=== PATIENT | female | born 1945 | race Caucasian/White ===

== ENCOUNTER 2017-03-07 19:51 | Emergency (ER) | payer MEDICARE, OTHER ==
[~2017-03-07] VITALS: Ht 160 cm; Wt 90.0 kg
[~2017-03-07 19:51] MED LIST: ALBU8I INH; ASPI81 PO; CARV6.252 PO; CYCL-36 PO; DIGO0.25 PO; EZET10 PO; FISH1000 PO; FLON0.053; FURO1TAB93 PO; GUAI200UDC PO; LEVA750T PO; NIAS10004 PO; NITR0.4S SL; OXYC-360 PO; SERT50 PO; SPIR25TA PO; TEMA15 PO; Z.0.OXYGENDME NC
[2017-03-07 19:55] VITALS: BP 178/79; PULSE 95; RESP 16; TEMP 98.2; O2SAT 97
[2017-03-07 20:17] VITALS: BP 139/85; PULSE 93; RESP 18; TEMP 99.5; O2SAT 95
[2017-03-07] MEDS ORDERED: PERC5TAB12 PO (20:27)
[2017-03-07] MEDS ORDERED: FISH1000 (20:27)
[2017-03-07] MEDS ORDERED: SPIR25TA PO (20:27)
[2017-03-07] MEDS ORDERED: CARV12.52 PO (20:27)
[2017-03-07] MEDS ORDERED: NITR0.4S SL (20:27)
[2017-03-07] MEDS ORDERED: TEMA15CA PO (20:27)
[2017-03-07] MEDS ORDERED: ZOLO50TA PO (20:27)
[2017-03-07] MEDS ORDERED: ZETI10TA5 PO (20:27)
[2017-03-07] MEDS ORDERED: AMMO12CR4 TOP (20:27)
[2017-03-07] MEDS ORDERED: SIMV40TA PO (20:27)
[2017-03-07] MEDS ORDERED: ASPI81CH CHEW (20:27)
[2017-03-07] MEDS ORDERED: TIZA4TAB PO (20:27)
[2017-03-07] MEDS ORDERED: FLUT1SPR14 (20:27)
[2017-03-07] MEDS ORDERED: CEPH500C PO (20:27)
[2017-03-07] MEDS ORDERED: ZOCO40TA PO (20:27)
[2017-03-07] MEDS ORDERED: FURO40TA PO (20:27)
[2017-03-07] MEDS ORDERED: DIGO0.25 PO (20:27)
[2017-03-07] MEDS ORDERED: SODIUM CHLORIDE 0.9% FLUSH 10 ML FLUSH IVF PRN (20:30)
[2017-03-07] MEDS ORDERED: ASPIRIN 81 MG CHEW TAB PO ONE (20:30)
[2017-03-07 20:34] VITALS: BP 139/85; O2SAT 94
--- NOTE | 2017-03-07 20:38 | PD ---
HPI Chief Complaint: Cold / Flu Symptoms Time Seen by Provider: 20:19 Travel History International Travel<30 days: No Contact w/Intl Traveler<30days: No Traveled to known affect area: No History of Present Illness HPI Patient is a 71-year-old female with history of single-vessel CABG, HTN, HLD who presents the emergency department with complaint of flulike symptoms as well as chest and jaw pain. For the last week patient has had cough, chest congestion, nasal congestion. Associated body aches, but no fevers or chills. Cough is primarily nonproductive. Patient states she has also been having very brief spells, 2-20 seconds of substernal chest pressure that radiates into the left jaw. This comes and goes without provocative or palliative factors. She is pain-free at this time. Patient has not been taking any nitroglycerin for this pain as it is so short lasting. She states she last had a stress test by her staff electronic warfare officer, Dr. Bradley Tejeda, approximate 3 months ago in his office. Patient believes this to have been normal. PFSH Past Medical History Hx Anticoagulant Therapy: Yes Arthritis: Yes Asthma: No Autoimmune Disease: No Blood Disorders: No Anxiety: No Depression: Yes Heart Rhythm Problems: Yes Cancer: Yes (SKIN ) Cardiac Catheterization: Yes (1998 AND REPEATED ) Cardiovascular Problems: Yes (bypass 1998, cad ) High Cholesterol: Yes Chemotherapy: No Chest Pain: Yes Congestive Heart Failure: No COPD: No Cerebrovascular Accident: No Coronary Artery Disease: Yes Diabetes: No ("borderline") Patient Takes Glucophage: No Diminished Hearing: No Endocrine: Yes (HX OF BORDERLINE DIABETIC) Gastrointestinal Disorders: No GERD: No Genitourinary: No Headaches: No Hepatitis: No Hiatal Hernia: No Heparin Induced Thrombocytopen: No Hypertension: Yes Immune Disorder: No Implanted Vascular Access Dvce: Yes Medical other: No Musculoskeletal: Yes (OA, NECK/ BACK PAIN) Neurologic: No Psychiatric: Yes Reproductive: No Respiratory: Yes (pneumonia) Immunizations Current: No Migraines: No Radiation Therapy: No Seizures: No Sleep Apnea: Yes (wears cpap at home ) Thyroid Disease: No Ulcer: No PNEUMOCCOCAL Vaccine (Year): 2008 Menopausal: Yes Tubal Ligation: Yes Past Surgical History Abdominal Surgery: Yes (APPY) AICD: No Appendectomy: Yes Arteriovenous Shunt: No Body Medical Devices: bilateral hips and knees Cardiac Surgery: Yes (CABG ) Coronary Artery Bypass Graft: Yes (1998) Ear Surgery: No Endocrine Surgery: No Eye Surgery: Yes (BILATERAL CATARCT SURGERY) Genitourinary Surgery: No Gynecologic Surgery: Yes (TUBAL LIGATION) Hysterectomy: Yes Insulin Pump: No Joint Replacement: Yes (ABDIEL. KNEES, BILAT HIP) Neurologic Surgery: No Oral Surgery: Yes Pacemaker: No Thoracic Surgery: No Tonsillectomy: Yes Other Surgery: Yes (cyst removed from right of back.) Family History Family Myocardial Infarction: Yes Social History Alcohol Use: Yes (SOCIALLY) Tobacco Use: No Substance Use: No Allergies-Medications (Allergen,Severity, Reaction): Coded Allergies: Lisinopril (Verified Allergy, Severe, SWELLING/COUGH, 03/07/17) MOD. ADVERSE RXN--PEDAL EDEMA, GEN'L BODY ITCH, COUGH Lortab (Verified Allergy, Severe, ITCHING, 03/07/17) SEVERE ADV. RXN: GEN'L BODY ITCH Morphine (Verified Allergy, Severe, 03/07/17) NAUSEA VOMITITNG Tramadol (Verified Allergy, Severe, ITCHING, 03/07/17) MOD. ADV. RXN: GEN'L BODY ITCH DENNY Inhibitors (Verified Adverse Reaction, Severe, ITCH, 03/07/17) GENERAL BODY ITCH Verapamil (Verified Adverse Reaction, Severe, COUGH, ITCH, 03/07/17) SEVERE ADV. RXN: GEN'L BODY ITCH, COUGH Reported Meds & Prescriptions Reported Meds & Active Scripts Active Reported Cephalexin 500 Mg Cap 500 Mg PO Q8H Kls Aller-Kenneth (Fluticasone Propionate (Nasal)) 50 Mcg/Act Spr Ammonium Lactate (Lactic Acid) 12 % Cre 1 Applic TOP BID APPLY TO: Zoloft (Sertraline HCl) 50 Mg Tab 50 Mg PO DAILY Zetia (Ezetimibe) 10 Mg Tab 10 Mg PO DAILY Zocor (Simvastatin) 40 Mg Tab 40 Mg PO DAILY Tizanidine (Tizanidine HCl) 4 Mg Tab 4 Mg PO BID Temazepam 15 Mg Cap 15 Mg PO HS PRN Spironolactone 25 Mg Tab 25 Mg PO DAILY Simvastatin 40 Mg Tab 40 Mg PO HS Percocet (Oxycodone-Acetaminophen) 5-325 mg Tab 1 Tab PO Q4H PRN Nitrostat SL (Nitroglycerin) 0.4 Mg Subl 0.4 Mg SL DIRECTED PRN 1 tablet under the tongue as needed for chest pain. Repeat every 5 minutes for a total of 3 DOSES or call 911 if NO relief. Furosemide 40 Mg Tab 40 Mg PO DAILY Fish Oil ([place]-3 Fatty Acids) 1,000 Mg Cap Digoxin 0.25 Mg Tab 0.25 Mg PO DAILY Carvedilol 12.5 Mg Tab 12.5 Mg PO BID Aspirin 81 Mg Chew 81 Mg CHEW DAILY Review of Systems Except as stated in HPI: all other systems reviewed are Neg Physical Exam Narrative GENERAL: Elderly female in no acute distress SKIN: Focused skin assessment warm/dry. HEAD: Normocephalic. EYES: No scleral icterus. No injection or drainage. ENT: Mucous membranes pink and moist. NECK: Supple CARDIOVASCULAR: Regular rate and rhythm. No murmur appreciated. RESPIRATORY: No accessory muscle use. Clear to auscultation. Breath sounds equal bilaterally. GASTROINTESTINAL: Abdomen soft, non-tender, nondistended. Obese MUSCULOSKELETAL: No obvious deformities. 1-2+ edema in the bilateral lower extremities NEUROLOGICAL: Awake and alert. Normal speech. PSYCHIATRIC: Appropriate mood and affect; insight and judgment normal. Data Data Last Documented VS Vital Signs Date Time Temp Pulse Resp B/P Pulse Ox O2 Delivery O2 Flow Rate FiO2 03/07/17 20:34 94 Room Air 03/07/17 20:34 139/85 03/07/17:17 99.5 93 18 Orders Electrocardiogram (03/07/17 20:29) Basic Metabolic Panel (Bmp) (03/07/17 20:29) Ckmb (Isoenzyme) Profile (03/07/17 20:29) Complete Blood Count With Diff (03/07/17 20:29) Magnesium (Mg) (03/07/17 20:29) Prothrombin Time / Inr (Pt) (03/07/17 20:29) Act Partial Throm Time (Ptt) (03/07/17 20:29) Troponin I (03/07/17 20:29) Chest, Single Ap (03/07/17 20:29) Ecg Monitoring (03/07/17 20:29) Bilateral Bp Monitoring (03/07/17 20:29) Iv Access Insert/Monitor (03/07/17 20:29) Oximetry (03/07/17 20:29) Aspirin Chew (Aspirin Chew) (03/07/17 20:30) Sodium Chloride 0.9% Flush (Ns Flush) (03/07/17 20:30) CKMB (03/07/17 20:35) CKMB% (03/07/17 20:35) Electrocardiogram (03/07/17 23:35) Troponin I (03/07/17 23:35) Labs Laboratory Tests Test 03/07/17 03/08/17 20:35 00:02 White Blood Count 12.9 TH/MM3 Red Blood Count 4.57 MIL/MM3 Hemoglobin 14.8 GM/DL Hematocrit 44.4 % Mean Corpuscular Volume 97.1 FL Mean Corpuscular Hemoglobin 32.3 PG Mean Corpuscular Hemoglobin 33.3 % Concent Red Cell Distribution Width 12.6 % Platelet Count 389 TH/MM3 Mean Platelet Volume 7.3 FL Neutrophils (%) (Auto) 65.2 % Lymphocytes (%) (Auto) 24.9 % Monocytes (%) (Auto) 7.0 % Eosinophils (%) (Auto) 2.0 % Basophils (%) (Auto) 0.9 % Neutrophils # (Auto) 8.4 TH/MM3 Lymphocytes # (Auto) 3.2 TH/MM3 Monocytes # (Auto) 0.9 TH/MM3 Eosinophils # (Auto) 0.3 TH/MM3 Basophils # (Auto) 0.1 TH/MM3 CBC Comment DIFF FINAL Differential Comment Prothrombin Time 10.1 SEC Prothromb Time International 0.9 RATIO Ratio Activated Partial 20.6 SEC Thromboplast Time Sodium Level 137 MEQ/L Potassium Level 4.4 MEQ/L Chloride Level 99 MEQ/L Carbon Dioxide Level 28.9 MEQ/L Anion Gap 9 MEQ/L Blood Urea Nitrogen 12 MG/DL Creatinine 0.88 MG/DL Estimat Glomerular Filtration 63 ML/MIN Rate Random Glucose 144 MG/DL Calcium Level 9.7 MG/DL Magnesium Level 2.5 MG/DL Total Creatine Kinase 189 U/L Creatine Kinase MB LESS THAN 0.5 NG/ML Troponin I LESS THAN 0.02 LESS THAN 0.02 NG/ML NG/ML MDM Medical Decision Making Medical Screen Exam Complete: Yes Emergency Medical Condition: Yes Medical Record Reviewed: Yes Differential Diagnosis 71-year-old female with history of single-vessel CABG, HTN, HLD who presents the emergency department with complaint of flulike symptoms as well as chest and jaw pain. Differential includes influenza, viral syndrome, pneumonia, sinusitis, bronchitis, ACS, atypical chest pain and less likely PE or dissection. Narrative Course Patient placed on monitor, IV established and blood obtained. Twelve-lead EKG shows sinus rhythm. Patient has T-wave inversions in inferior leads II, III, and F aVF. These are old. She does have sub-millimeter ST depression and T wave inversions in anterior lateral leads V3 through V6. She again is pain- free at this time. She was given aspirin. Portable chest x-ray obtained that by my read shows no acute abnormalities. CBC, BMP, magnesium, CK-MB, troponin, coags obtained and unremarkable. Given her new EKG changes from the previous EKG that I have, although that is greater than 1 year ago I recommended admission for serial enzymes and provocative testing despite the fact that her symptoms seem somewhat atypical and negative stress test 3 months ago. Patient however does not want to stay. We compromised with 3 hour repeat cardiac enzyme and EKG and disposition to home if negative. Repeat EKG/troponin were unchanged. Patient felt reassured and will be discharged home to follow-up with Dr. Bradley Tejeda as an outpatient. Diagnosis Primary Impression: Bronchitis Additional Impression: Atypical chest pain Referrals: Bradley Tejeda MD call for appointment Additional Instructions: Follow up with staff electronic warfare officer as discussed. Tessalon Perles as needed for cough. Return to the ER for the warning signs discussed. Med/Other Pt SpecificInfo: No Change to Meds Scripts Benzonatate (Tessalon Perles)100 Mg [id number] Mg PO TID PRN (COUGH) #10 CAP Ref 0 Prov:Rosy Meza MD 03/08/17 Disposition: 01 DISCHARGE HOME Condition: Stable Rosy Meza MD Mar 07, 2017 20:38
[2017-03-07 21:02] LABS: AUTOMATED NEUTROPHIL # 8.4 TH/MM3 (1.8-7.7); BASOPHIL # 0.1 TH/MM3 (0-0.2); BASOPHIL % 0.9 % (0.0-2.0); EOSINOPHIL # 0.3 TH/MM3 (0-0.4); HEMATOCRIT 44.4 % (35.0-46.0); HEMO FLAGS DIFF FINAL; LYMPH % 24.9 % (9.0-44.0); LYMPHOCYTE # 3.2 TH/MM3 (1.0-4.8); MEAN CELL VOLUME 97.1 FL (80.0-100.0); MEAN CORPUSCULAR HEMOGLOBIN 32.3 PG (27.0-34.0); MEAN CORPUSCULAR HGB CONC 33.3 % (32.0-36.0); NEUT % 65.2 % (16.0-70.0); PLATELET COUNT 389 TH/MM3 (150-450); RED BLOOD COUNT 4.57 MIL/MM3 (4.00-5.30); RED CELL DISTRIBUTION WIDTH 12.6 % (11.6-17.2); WHITE BLOOD COUNT 12.9 TH/MM3 (4.0-11.0)
[2017-03-07 21:22] LABS: APTT (PATIENT) 20.6 SEC (24.3-30.1); INTERNATIONAL NORMALIZED RATIO 0.9 RATIO; PROTHROMBIN TIME - PATIENT 10.1 SEC (9.8-11.6)
--- NOTE | 2017-03-07 21:22 | RADRPT ---
EXAM DATE/TIME: 03/07/2017 20:51 [facility] COMPARISON: No previous studies available for comparison. INDICATIONS : Chest pain. MEDICAL HISTORY : Cardiovascular disease. SURGICAL HISTORY : CABG. ENCOUNTER: Initial ACUITY: 1 day PAIN SCORE: 7/10 LOCATION: Bilateral chest FINDINGS: A single view of the chest demonstrates the lungs to be symmetrically aerated without evidence of mas s, infiltrate or effusion. The cardiomediastinal contours are mildly prominent with previous sternot merlyn. Osseous structures are intact. CONCLUSION: 1. Postoperative median sternotomy. Mild cardiomegaly. No acute findings. Buddy Kathleen MD on March 07, 2017 at 21:20 Board Certified Radiologist. This report was verified electronically.
[2017-03-07 21:31] LABS: ANION GAP 9 MEQ/L (5-15); BICARBONATE 28.9 MEQ/L (21.0-32.0); BLOOD UREA NITROGEN 12 MG/DL (7-18); CHLORIDE 99 MEQ/L (98-107); CREATINE KINASE 189 U/L (26-192); GLOMERULAR FILTRATION RATE 63 ML/MIN (>89); MAGNESIUM 2.5 MG/DL (1.5-2.5); SODIUM (NA) 137 MEQ/L (136-145)
[2017-03-07 21:32] LABS: POTASSIUM 4.4 MEQ/L (3.5-5.1)
[2017-03-07 21:45] LABS: CKMB LESS THAN 0.5 NG/ML (0.5-3.6)
[2017-03-08] MEDS ORDERED: BENZ100 PO (00:52)
--- NOTE | 2017-03-08 15:59 | EKG ---
Date Performed: 03/07/2017 Time Performed: 23:56:56 PTAGE: 71 years EKG: Sinus rhythm BORDERLINE RIGHT AXIS DEVIATION NONSPECIFIC ST & T-WAVE ABNORMALITY Consider inferior ischemia. ABNO RMAL ECG PREVIOUS TRACING : 03/07/2017 20.30 DOCTOR: See Matos Interpretating Date/Time 03/08/2017 15:58:13
--- NOTE | 2017-03-08 15:59 | EKG ---
Date Performed: 03/07/2017 Time Performed: 20:30:20 PTAGE: 71 years EKG: Sinus rhythm BORDERLINE RIGHT AXIS DEVIATION ST DEVIATION AND MODERATE T-WAVE ABNORMALITY, CONSIDER ANTEROLATERAL ISCHEMIA ST DEVIATION AND MODERATE T-WAVE ABNORMALITY, CONSIDER INFERIOR ISCHEMIA ABNORMAL ECG PREVIOUS TRACING : 10/12/2015 13.38 Since previous tracing, no significant change noted DOCTOR: See Matos Interpretating Date/Time 03/08/2017 15:57:19
== END 2017-03-08 01:07 | disposition home or self-care (01) ==
LOC: NEPE 19:51
DX: J40 Bronchitis, not specified as acute or chronic (principal); E78.00 Pure hypercholesterolemia, unspecified; I11.9 Hypertensive heart disease without heart failure; I51.7 Cardiomegaly; I25.10 Atherosclerotic heart disease of native coronary artery without angina pectoris; Z79.899 Other long term (current) drug therapy; Z95.1 Presence of aortocoronary bypass graft; Z79.01 Long term (current) use of anticoagulants
CPT/HCPCS: 71010; 80048; 82550; 82552; 83735; 84484; 85025; 85610; 85730; 93005; 99285